=== PATIENT | female | born 1990 | race African-American/Black ===

== ENCOUNTER 2017-02-14 20:29 | Emergency (ER) | payer OTHER ==
[~2017-02-14] VITALS: Ht 154.9 cm; Wt 107.0 kg
[~2017-02-14 20:29] MED LIST: FLAGYL500 MG PO; LORTAB 10 MG-3473 ML PO; ONDANSETRON HCL4 M2 PO; ROBAXIN 750 MG750 M1 PO
[2017-02-14] MEDS ORDERED: HYDROCODONE-ACE15 ML PO (21:43)
[2017-02-14 22:30] VITALS: BP 133/85
== END 2017-02-15 00:30 | disposition home or self-care (01) ==
LOC: ER 20:29
DX: S92.511A Displaced fracture of proximal phalanx of right lesser toe(s), initial encounter for closed fracture (principal); Z88.2 Allergy status to sulfonamides; W22.8XXA Striking against or struck by other objects, initial encounter; Y93.89 Activity, other specified; Y92.89 Other specified places as the place of occurrence of the external cause; Y99.8 Other external cause status

== ENCOUNTER 2017-07-22 11:05 | Emergency (ER) | payer OTHER ==
[~2017-07-22] VITALS: Ht 154.9 cm; Wt 95.3 kg
[~2017-07-22 11:05] MED LIST changes: +HYDROCODONE-ACE15 ML PO
[2017-07-22] MEDS ORDERED: NAPROSYN500 MG PO (11:27)
[2017-07-22] MEDS ORDERED: NORFLEX100 MG PO (11:27)
== END 2017-07-22 12:03 | disposition home or self-care (01) ==
LOC: ER 11:05
DX: S39.012A Strain of muscle, fascia and tendon of lower back, initial encounter (principal); Z88.2 Allergy status to sulfonamides; V49.49XA Driver injured in collision with other motor vehicles in traffic accident, initial encounter; Y93.89 Activity, other specified; Y92.89 Other specified places as the place of occurrence of the external cause; Y99.8 Other external cause status

== ENCOUNTER 2018-05-19 11:13 | Emergency (ER) | payer OTHER ==
[~2018-05-19] VITALS: Ht 154.9 cm; Wt 98.0 kg
[~2018-05-19 11:13] MED LIST changes: +NAPROSYN500 MG PO; +NORFLEX100 MG PO
[2018-05-19] MEDS ORDERED: NORFLEX100 MG PO (12:17)
[2018-05-19] MEDS ORDERED: MOBIC7.5 MG PO (12:17)
[2018-05-19 12:28] VITALS: BP 116/73
== END 2018-05-19 12:35 | disposition home or self-care (01) ==
LOC: ER 11:13
DX: S39.012A Strain of muscle, fascia and tendon of lower back, initial encounter (principal); W00.0XXA Fall on same level due to ice and snow, initial encounter; Y93.89 Activity, other specified; Y92.89 Other specified places as the place of occurrence of the external cause; Y99.8 Other external cause status

== ENCOUNTER 2018-06-06 17:16 | Emergency (ER) | payer OTHER ==
[~2018-06-06] VITALS: Ht 154.9 cm; Wt 95.3 kg
[~2018-06-06 17:16] MED LIST changes: +MOBIC7.5 MG PO
[2018-06-06 17:20] VITALS: BP 132/66
[2018-06-06] MEDS ORDERED: NORCO 5-325 TA1 EACH PO (17:57)
== END 2018-06-06 18:32 | disposition home or self-care (01) ==
LOC: ER 17:16
DX: M54.5 Low back pain (principal); M53.3 Sacrococcygeal disorders, not elsewhere classified; G89.29 Other chronic pain; Z88.2 Allergy status to sulfonamides; V43.52XA Car driver injured in collision with other type car in traffic accident, initial encounter; Y93.I9 Activity, other involving external motion; Y92.89 Other specified places as the place of occurrence of the external cause; Y99.8 Other external cause status

== ENCOUNTER 2018-06-09 16:43 | Emergency (ER) | payer OTHER ==
[~2018-06-09] VITALS: Ht 154.9 cm; Wt 95.3 kg
[~2018-06-09 16:43] MED LIST changes: +NORCO 5-325 TA1 EACH PO
[2018-06-09] MEDS ORDERED: NABUMETONE 750750 M1 PO (17:42)
[2018-06-09] MEDS ORDERED: NORFLEX100 MG PO (17:42)
[2018-06-09 18:35] VITALS: BP 141/81
== END 2018-06-09 17:49 | disposition home or self-care (01) ==
LOC: ER 16:43
DX: S39.012A Strain of muscle, fascia and tendon of lower back, initial encounter (principal); G89.29 Other chronic pain; M54.9 Dorsalgia, unspecified; Z88.2 Allergy status to sulfonamides; V89.2XXA Person injured in unspecified motor-vehicle accident, traffic, initial encounter; Y93.89 Activity, other specified; Y92.89 Other specified places as the place of occurrence of the external cause; Y99.8 Other external cause status

== ENCOUNTER 2018-12-27 01:39 | Emergency (ER) | payer OTHER ==
[~2018-12-27] VITALS: Ht 154.9 cm; Wt 77.1 kg
[~2018-12-27 01:39] MED LIST changes: +NABUMETONE 750750 M1 PO
[2018-12-27] MEDS ORDERED: BIRTH CONTROL (01:46)
[2018-12-27] MEDS ORDERED: IBUPROFEN 600600 M1 PO (01:46)
[2018-12-27] MEDS ORDERED: NORCO 5-325 TA1 EAC1 PO (03:16)
[2018-12-27 03:49] VITALS: BP 124/80
== END 2018-12-27 03:40 | disposition home or self-care (01) ==
LOC: ER 01:39
DX: S62.663A Nondisplaced fracture of distal phalanx of left middle finger, initial encounter for closed fracture (principal); Z88.2 Allergy status to sulfonamides; W23.1XXA Caught, crushed, jammed, or pinched between stationary objects, initial encounter; Y92.89 Other specified places as the place of occurrence of the external cause; Y93.89 Activity, other specified; Y99.8 Other external cause status

== ENCOUNTER 2019-07-07 09:21 | Emergency (ER) | payer OTHER ==
[~2019-07-07] VITALS: Ht 154.9 cm; Wt 59.0 kg
[~2019-07-07 09:21] MED LIST changes: +BIRTH CONTROL; +IBUPROFEN 600600 M1 PO; +NORCO 5-325 TA1 EAC1 PO
[2019-07-07 09:44] LABS: URINE BLOOD TRACE (Negative); URINE CLARITY CLOUDY; URINE COLOR YELLOW; URINE GLUCOSE-RANDOM* NEGATIVE (Negative); URINE KETONES TRACE (Negative); URINE PROTEIN (DIPSTICK) 1+ (Negative); URINE SPECIFIC GRAVITY >= 1.030 (1.005-1.035)
[2019-07-07 09:46] LABS: ICTOTEST (BILI CONFIRMATORY) Negative (Negative); URINE BILIRUBIN NEGATIVE (Negative); URINE LEUKOCYTES-REFLEX 2+ (Negative); URINE NITRITE-REFLEX POSITIVE (Negative)
[2019-07-07 10:03] LABS: CASTS None Seen /LPF (None Seen); MUCUS >6 Heavy strn/LPF (None Seen); SQUAMOUS >10 Many /LPF (0-3)
[2019-07-07 10:04] LABS: URINE RBC 0-2 Rare /HPF (0-2); URINE WBC-REFLEX >25 Many /HPF (0-5)
[2019-07-07 10:05] LABS: CRYSTALS None Seen /LPF (None Seen); WBC CLUMPS Few (None Seen)
[2019-07-07 11:10] VITALS: BP 124/75
[2019-07-07] MEDS ORDERED: KEFLEX500 M1 PO (11:11)
== END 2019-07-07 11:10 | disposition home or self-care (01) ==
LOC: ER 09:21
PROVIDERS: Emergency Medicine
DX: N39.0 Urinary tract infection, site not specified (principal); Z20.2 Contact with and (suspected) exposure to infections with a predominantly sexual mode of transmission; Z98.84 Bariatric surgery status; Z88.2 Allergy status to sulfonamides

== ENCOUNTER 2020-05-27 11:56 | Emergency (ER) | payer OTHER ==
[~2020-05-27] VITALS: Ht 154.9 cm; Wt 52.6 kg
[~2020-05-27 11:56] MED LIST changes: +KEFLEX500 M1 PO
[2020-05-27 12:12] LABS: URINE BILIRUBIN NEGATIVE (Negative); URINE BLOOD NEGATIVE (Negative); URINE CLARITY CLEAR; URINE COLOR YELLOW; URINE GLUCOSE-RANDOM* NEGATIVE (Negative); URINE KETONES NEGATIVE (Negative); URINE LEUKOCYTES-REFLEX TRACE (Negative); URINE NITRITE-REFLEX NEGATIVE (Negative); URINE PROTEIN (DIPSTICK) NEGATIVE (Negative)
[2020-05-27] MEDS ORDERED: ZOFRAN ODT4 MG PO (13:19)
[2020-05-27 13:39] VITALS: BP 97/67
== END 2020-05-27 13:45 | disposition home or self-care (01) ==
LOC: ER 11:56
PROVIDERS: Physician Assistant
DX: O98.311 Other infections with a predominantly sexual mode of transmission complicating pregnancy, first trimester (principal); A56.8 Sexually transmitted chlamydial infection of other sites; O21.8 Other vomiting complicating pregnancy; Z3A.09 9 weeks gestation of pregnancy; Z88.4 Allergy status to anesthetic agent; Z79.2 Long term (current) use of antibiotics; Z79.899 Other long term (current) drug therapy; Z88.2 Allergy status to sulfonamides